=== PATIENT | male | born 1975 | race Caucasian/White ===

== ENCOUNTER 2017-04-24 10:06 | Emergency (ER) | payer BC, OTHER ==
[~2017-04-24] VITALS: Ht 170.2 cm; Wt 98.6 kg
[2017-04-24 10:10] VITALS: TEMP 36.8; Ht 170.2 cm; Wt 98.6 kg
[2017-04-24] MEDS ORDERED: PROPARACAINE HCL 0.5% OP SOLN 15 ML BTL ONE (10:27)
[2017-04-24] MEDS ORDERED: CIPROFLOXACIN HCL 0.3% OP SOLN 2.5 ML BTL OPR ONE (10:45)
[2017-04-24] MEDS ORDERED: KETO0.5S33 OP (11:02)
--- NOTE | 2017-04-24 11:04 | EMERGENCY ROOM VISIT NOTE ---
ED Visit Note First contact with patient: 10:15 CHIEF COMPLAINT: Right eye irritation 2 days HISTORY OF PRESENT ILLNESS: Patient is an otherwise healthy 41-year-old white male who presents emergency department for evaluation of right eye redness, tearing and irritation 2 days. He states he felt like he got something in his eye, possibly sawdust, at work on Tuesday. He has tried eyedrops to flush the eye, but his symptoms have not improved. He notes redness, tearing and irritation but denies any significant pain or changes in vision. He did have some crusting of the size of the last couple of mornings. He denies being significantly photophobic. He has no symptoms in the left eye. He denies that it could be a metallic foreign body. He does not wear glasses or corrective lenses. REVIEW OF SYSTEMS: Review of systems as per HPI. All other systems reviewed were negative. At least 6 systems reviewed. PMH: Electronic medical records are reviewed and summarized as above/below. See Problem List. SOCIAL HISTORY: Patient lives at home with his family. Nonsmoker. PHYSICAL EXAM: Vital Signs: Reviewed Nurse's notes. VISUAL ACUITY: 20/20 in the right eye, 20/15 in the left eye without correction. EYE: Pupils are equal round and reactive to light. Right eye is moderately injected, primarily laterally. No drainage or discharge present. EOMs are intact. There is no foreign body of right eyelid with lid eversion. I was anesthetized with proparacaine drops, for slightly exam. Slit lamp exam did not reveal any foreign body embedded in the cornea, or the sclera. There is no hyphema. No chemosis. There was very slight superficial fluorescein uptake noted at around 9:00 in the periphery of the cornea. EMERGENCY DEPARTMENT COURSE: The eye was anesthetized with proparacaine drops to facilitate exam. There is no foreign body underneath the upper lid, no corneal foreign body or scleral foreign body. Very minor, superficial abrasion noted around 9:00, definitely no corneal ulceration. The patient was agreeable to a Volodymyr lens flush. He will then be placed on Ciloxan drops and Acular drops for prevention of infection and for inflammation. He was encouraged to follow up with an eye doctor if his symptoms are not improving, and to return to the emergency department for any worsening in terms or changes in vision. He was discharged home with his family in good condition. Medication reconciliation: I attest that I have personally reviewed the patient' s current medication list. Blood pressure screening : Patient was found to have normal blood pressure on screening and does not require follow-up. Problem List Medical Problems: (1) Hypertension Status: Chronic Current/Historical Medications Scheduled Ketorolac Tromethamine (Ophth) (Acular Oph), 1 DROP OP QID Allergies Coded Allergies: Penicillins (Verified Allergy, Unknown, unkn, 04/24/17) Vital Signs Date Time Temp Pulse Resp B/P (MAP) Pulse Ox O2 Delivery O2 Flow Rate FiO2 04/24/17 11:10 97 18 149/106 97 Room Air 04/24/17 10:10 36.8 96 20 134/94 96 Room Air Medications Administered Medications (Trade) Dose Ordered Sig/Bridget Route Start Time Stop Time Status Last Admin Dose Admin Proparacaine HCl (Alcaine 0.5% Oph Soln) 225 drops STK-MED ONCE .ROUTE 04/24/17 10:27 04/24/17 10:28 DC 04/24/17 10:27 225 DROPS Ciprofloxacin HCl (Ciprofloxacin 0.3% Op Soln) 2 drops NOW ONCE OPR 04/24/17 10:45 04/24/17 10:46 DC 04/24/17 10:54 2 DROPS Departure Information Impression Primary Impression: Corneal abrasion, right Additional Impression: Right conjunctivitis Prescriptions Ketorolac Tromethamine (Ophth) (ACULAR OPH) 0.5 % Kia 1 DROP OP QID for 5 Days, #1 BTL Prov: Kelly Corona PA 04/24/17 Referrals No Doctor, Assigned (PCP) Patient Instructions [facility] Additional Instructions Ciloxan drops: 2 antibiotic eyedrops in the right eye every 4 hours over the next 5-7 days. Acular drops: 1 drop in the right eye 4 times daily for the next 3-5 days for inflammation. Ibuprofen(Motrin, Advil) may be used for fever or pain. Use 600mg every six hours as needed. Take with food. Avoid using more than 2400mg in a 24 hour period. Do not use 2400mg per day for more than three consecutive days without physician direction. Prolonged inappropriate use can lead to stomach upset or ulcers. (AND/OR) Acetaminophen(Tylenol) may be used for fever or pain. Use 1000mg every six hours as needed. Avoid using more than 3000mg in a 24 hour period. You may also intermittently apply a cool compress and wear sunglasses for additional relief. Follow-up with an sheeter waxer operator if no improvement within 36-48 hrs. Return to the ED for worsening pain or changes in vision. Problem Qualifiers
[2017-04-24 11:10] VITALS: BP 149/106; PULSE 97; O2SAT 97
== END 2017-04-24 11:16 | disposition home or self-care (01) ==
LOC: C.EDB 10:08 → C.EDA 11:16
DX: S05.01XA Injury of conjunctiva and corneal abrasion without foreign body, right eye, initial encounter (principal); H10.9 Unspecified conjunctivitis; X58.XXXA Exposure to other specified factors, initial encounter; I10 Essential (primary) hypertension